=== PATIENT | female | born 1950 | race Caucasian/White ===

== ENCOUNTER 2018-09-28 10:46 | Inpatient (IN) | payer OTHER, MEDICAID ==
[~2018-09-28] VITALS: Ht 165.1 cm; Wt 96.2 kg
--- NOTE | ~2018-09-28 | DS ---
[place], [place] DISCHARGE SUMMARY NAME: ARLEY GORDON [facility] #: [id number] UNIT #: [id number] ROOM: 311 DOCTOR: SHAKIR PEREZ MD BIRTHDATE: [birth year] DOS: 10/04/2018 CHIEF COMPLAINT: "Oh, I guess I was sent from the [facility] to come and have my medicines changed." HISTORY OF PRESENT ILLNESS: This is a 68-year-old white female who was admitted to the [facility] from [facility]. The patient had become increasingly more depressed and despondent as well as increasingly more agitated. She has been openly urinating on the floor and taking off her colostomy bag and dumping the contents on the floor and laughing about it. Attempts to redirect her have only been met by her becoming increasingly more agitated and more despondent. The patient has endorsed poor sleep and appetite as well as decreased ADLs. She is admitted now to rule out organic factors and to attempt to stabilize on medication. SUMMARY OF HOSPITAL COURSE: The patient was admitted to the unit where she was started on a combination of Remeron 15 mg at bedtime and Risperdal 0.5 mg twice daily to decrease the depression and decrease the impulsivity and the bizarre behavior. Cognitively, she had significant short term gaps, so Exelon patch 4.6 mg a day and Namenda 5 mg a day were started. These were rapidly titrated upward to their maximum dose of Exelon patch 13.3 mg a day and Namenda 10 mg twice daily. The patient had a rapid and dramatic improvement with this combination of medicine. Sleep and appetite normalized. Her cognitive loss is minimized. She was able to attend to ADLs and attend groups. She voiced positive plans for the future and voiced a willingness and a readiness to go to [facility] to further her rehabilitation and build up strength. MENTAL STATUS AT DISCHARGE: The patient is alert and oriented with time gaps. Mood does seem to be strongly trending towards euthymia. Affect is more appropriate. There is no hypomania or brian. There is no gross psychosis. Short term memory has gaps, otherwise she is intact. FINAL DIAGNOSES AT THE TIME OF DISCHARGE: Major depression, recurrent with psychotic features and dementia, not otherwise specified. DISPOSITION: The patient is going to [facility]. Her prescriptions have been printed and will be sent with her. At the time of discharge, there were no acute medical problems and psychiatrically she was stable. I will be the treating psychiatrist of record upon her return to [facility]. [place], [place] DISCHARGE SUMMARY NAME: ARLEY GORDON UNIT #: [id number] ROOM: [facility] DOCTOR: SHAKIR PEREZ MD BIRTHDATE: [birth year] SHAKIR PEREZ MD CM:DISCHARG [id number] SHAKIR PEREZ MD 10/04/18 1226 interface
--- NOTE | ~2018-09-28 | WRIGHTHP ---
[place], [place] PATIENT HISTORY AND PHYSICAL EXAM [id number] UN[facility] #: [id number] ROOM: 311 DOCTOR: SHAKIR PEREZ MD BIRTHDATE: [birth year] DOS: 09/28/2018 CHIEF COMPLAINT: "Oh, I guess I was sent from the [facility] to come and have my medicines changed." HISTORY OF PRESENT ILLNESS: This is a 68-year-old white female who was admitted to the [facility] from [facility]. The patient apparently had become increasingly more depressed and despondent as well as increasingly agitated. She had been openly urinating on the floor or taking off her colostomy bag and dumping the contents on the floor and laughing about it. Attempts to redirect have only met with her becoming increasingly more agitated and despondent. The patient has had poor sleep and appetite and a decrease in her ADLs as well. She is admitted now to rule out organic factors and attempt to stabilize on medication. PAST MEDICAL HISTORY: Remarkable for atrial fibrillation, congestive heart failure, COPD, Crohn's disease, hypertension, GERD, morbid obesity, allergic rhinitis, and nicotine abuse. SOCIAL HISTORY: The patient is a former smoker. She smoked since the age of 14, approximately 1 pack a day, quitting in 09/2017. The patient does not drink alcohol nor does she use illicit drugs. STRENGTHS: Good verbal skills, willingness to seek help. WEAKNESSES: Cognitive decline, poor coping skills. MENTAL STATUS EXAMINATION: She is alert and oriented with significant time gaps. The patient does not remember being at [facility] and [facility] Mood does seem to be depressed with some anxious overtones. She endorses multiple neurovegetative symptoms. There was no overt psychosis noted at this time, although she was not totally forthcoming with symptoms. She did process conversation slowly and short term memory continued to be problematic. DIAGNOSIS: Major depression, recurrent with psychotic features and Alzheimer's dementia. PLAN: I have already started her on Remeron 15 mg at bedtime and Risperdal 0.5 mg twice daily. Given the cognitive decline, I will add Exelon patch 4.6 mg a day and augment with Namenda 5 mg a day. We will engage in individual and conrad milieu activity, returning to the least restrictive environment when psychiatrically stable. [place], [place] PATIENT HISTORY AND PHYSICAL EXAM NAME: ARLEY GORDON UNIT #: [id number] ROOM: 311 DOCTOR: SHAKIR PEREZ MD BIRTHDATE: [birth year] SHAKIR PEREZ MD CM:HISPHYS:PATIENT HISTORY AND PHYSICAL EXAMINATION [id number] SHAKIR PEREZ MD 09/29/18 1140 interface
--- NOTE | ~2018-09-28 | PR ---
[place], [place] PROGRESS NOTE NAME: ARLEY GORDON UNIT #: [id number] ROOM: 311 DOCTOR: SHAKIR PEREZ MD BIRTHDATE: [birth year] DOS: 09/30/2018 CHIEF COMPLAINT: "Oh, I slept well. Everything is good." SUMMARY OF THE VISIT: The patient was interviewed in the dining area where she had eaten her breakfast. She engaged readily in conversation, reporting that she slept well and felt well. When asked again about living at [facility]. She replied that she does not remember ever being there and that she came from [facility] in the [facility] directly to the hospital. This is consistent with, but other staff have noticed that she has talked about being at [facility]. Whether this represents part of the delirium or patchy memory loss is unclear. MENTAL STATUS: She is alert and oriented to person, place, not necessarily to time. Mood does seem to be fairly euthymic. Affect appropriate. There is no brian or hypomania. There is no gross psychosis. Short term memory has gaps. PLAN: I will go ahead and increase both the Exelon patch and the Namenda, bringing Exelon patch from 4.6 to 9.5 mg daily and increasing the Namenda from 5 mg a day to 5 mg twice a day. SHAKIR PEREZ MD CM:PNTRANS [id number] SHAKIR PEREZ MD 09/30/18 1301 interface
--- NOTE | ~2018-09-28 | PR ---
[place], [place] PROGRESS NOTE NAME: ARLEY GORDON UNIT #: [id number] ROOM: 311 DOCTOR: SHAKIR PEREZ MD BIRTHDATE: [birth year] DOS: 10/02/2018 INTERVAL NOTE CHIEF COMPLAINT: "Oh is it time to get up." SUMMARY OF THE VISIT: The patient was interviewed as she was resting quietly in bed. She engaged readily in conversation and voiced no complaints. She reports that she slept well and was ready for breakfast. Mood does seem to be strongly trending towards euthymia. Affect is more appropriate. MENTAL STATUS: She is alert and oriented with time gaps. Mood does seem to be much more appropriate and trending towards euthymia. There is no brian, hypomania or psychosis. Short term memory has gaps. PLAN: I will go ahead and maximize out her dose of Exelon patch, bringing it from 9.5 to 13.3 mg a day, being augmented by Namenda 10 mg twice daily. Continue her other psychotropics, engage in individual and conrad milieu activity, returning then to the least restrictive environment when psychiatrically stable. SHAKIR PEREZ MD CM:PNTRANS [phone] SHAKIR PEREZ MD 10/02/181726 interface
--- NOTE | ~2018-09-28 | PR ---
[place], [place] PROGRESS NOTE NAME: ARLEY GORDON UNIT #: [id number] ROOM: 311 DOCTOR: SHAKIR PEREZ MD BIRTHDATE: [birth year] DOS: 10/03/2018 CHIEF COMPLAINT: "Oh, I slept better. I am ready to go back to [facility]." SUMMARY OF THE VISIT: The patient was interviewed in the dining area where she was sitting with several female peers and 1 male peer. She engaged readily in conversation this time without prompting. She did mention that she is anxious to go back to [facility] and hopes that the one driver service technician will be able to pick her up. She reports that the meds are working and denies any side effects. MENTAL STATUS: She is alert and oriented to person, place, and very approximate to time. Mood does seem to be strongly trending towards euthymia. Affect is more appropriate. There is no brian or hypomania. There is no gross psychosis. Short-term memory has mild gaps, otherwise she is intact. PLAN: I will maintain her current psychotropic regimen. Continue to engage in individual and conrad milieu activity, returning to the least restrictive environment when psychiatrically stable. SHAKIR PEREZ MD CM:PNTRANS [phone] SHAKIR PEREZ MD 10/04/18 0355 interface
--- NOTE | ~2018-09-28 | PR ---
[place], [place] PROGRESS NOTE NAME: ARLEY GORDON UNIT #: [id number] ROOM: 311 DOCTOR: SHAKIR PEREZ MD BIRTHDATE: [birth year] DOS: 10/01/2018 CHIEF COMPLAINT: "Oh, I am so ready to go." SUMMARY OF THE VISIT: The patient was interviewed in the dining area. She reported that she slept well, but still feels tired this morning, she did eat her breakfast. She voiced no other complaints. She still remains somewhat confused with short-term memory loss. MENTAL STATUS: She is alert and oriented to person, place, but not necessarily time. Mood does seem to be more euthymic. Affect is more appropriate. There is no brian or hypomania. There is no gross psychosis. Short term memory has gaps, otherwise she is intact. PLAN: I will go ahead and maximize out the dose of the Namenda, bringing it to 10 mg twice daily while it augments the effectiveness of the Exelon patch, which I will increase to its maximum dose soon. Continue to engage in individual and conrad milieu activity, returning to the least restrictive environment when psychiatrically stable. SHAKIR PEREZ MD CM:PNTRANS [id number] SHAKIR PEREZ MD 10/01/18 1242 interface
[2018-09-28] MEDS ORDERED: BREO ELLIPTA 21 EACH INH (11:31)
[2018-09-28] MEDS ORDERED: CYMBALTA60 MG PO (11:32)
[2018-09-28] MEDS ORDERED: DIGITEK125 MCG PO (11:34)
[2018-09-28] MEDS ORDERED: VITAMIN D34000 UNIT PO (11:36)
[2018-09-28] MEDS ORDERED: VITAMIN D-32000 UNI1 PO (11:40)
[2018-09-28] MEDS ORDERED: NATURE'S BLEND F1 MG PO (11:41)
[2018-09-28] MEDS ORDERED: LASIX20 MG PO (11:42)
[2018-09-28] MEDS ORDERED: OXYBUTYNIN5 MG PO (11:43)
[2018-09-28] MEDS ORDERED: POTASSIUM CHLO10 ME4 PO (11:56)
[2018-09-28] MEDS ORDERED: PROTONIX40 MG PO (11:57)
[2018-09-28] MEDS ORDERED: ROWASA 4 G4 GM/60 ML R (12:00)
[2018-09-28] MEDS ORDERED: NAVANE2 MG PO (12:00)
[2018-09-28] MEDS ORDERED: FLONASE ALLERG9.9 ML NAS (12:01)
[2018-09-28] MEDS ORDERED: LOPRESSOR25 MG PO (12:02)
[2018-09-28] MEDS ORDERED: BENADRYL ALLERG25 M5 PO (12:06)
[2018-09-28] MEDS ORDERED: Ipratropium Brom3 ML INH (12:07)
--- NOTE | 2018-09-28 17:20 | NUR ---
EVANARLEY SAXENA a 68 year old F admitted via wheel chair from the ADMITTING as a voluntary admission. Arrived on unit at 1720. ALLERGIES: NKA. Vital signs are: [id number] 140/74. The client signed the following forms with stated understanding: Authorization For The Release of Medical Information, Clothing List, Consent to Voluntary Admission and Hospitalization, Consent and Release Forms/Receipt of Rights, Acknowledgement of Advance Directive Information, Behavioral Health Consent Form, and Informed Consent of Medications. Admitted under the services of Dr. CHRIS NAVARRETESHAKIR. A search was conducted and hazardous articles were removed. Client was oriented to the unit. VAL ROQUE
[2018-09-28 17:30] VITALS: BP 140/74
[2018-09-28 18:21] VITALS: BP 140/74
[2018-09-28 18:26] VITALS: BP 140/74
--- NOTE | 2018-09-28 18:58 | NUR ---
NOTIFIED OF NEW ADMISSION, MEDICATIONS/DIAGNOSIS LIST UPDATED. NOTIFIED OF COUPLE OF MEDICATIONS THAT NEEDS CLARIFIED. PATIENT TO BE UNDER THE CARE OF DR. COTTO.
--- NOTE | 2018-09-28 19:02 | NUR ---
PATIENT IS ALERT AND ORIENTED X3, ABLE TO VOICE NEEDS. SKIN ASSESSMENT COMPLETE; NOT AREAS NOTED. PATIENT HAS RIGHT UPPER CHEST MEDI PORT; PER PATIENT HAS NOT BEEN ACCESSED IN A LONG TIME. MOOD SLIGTLY ANXIOUS. DENIES ANY HALLUCINATIONS, DELUSIONS, HI/SI OR PAIN. ATE 100% OF DINNER; COOPERATIVE DURING ASSESSMENT. AMBULATES VERY SHORT DISTANCES WITH STEADY GAIT. COLOSTOMY IN PLACE, INCONTINENT OF BLADDER, HEMRROIDS NOTED WITH BLOOD NOTED IN BRIEF. DR. COTTO NOTIFIED.
--- NOTE | 2018-09-28 19:55 | NUR ---
Established rapport and pt declined any needs at this time and was notified of PSA plan for tomorrow.
[2018-09-28 20:00] VITALS: BP 107/54
--- NOTE | 2018-09-28 20:23 | NUR ---
DR. BELINDA STEWART ON UNIT TO SEE PATIENT AT THIS TIME.
--- NOTE | 2018-09-28 21:39 | NUR ---
DR BELINDA ALCOCER ON UNIT TO SEE PT FOR MEDICAL CONSULT
--- NOTE | 2018-09-29 00:03 | NUR ---
24 HR chart check completed.
--- NOTE | 2018-09-29 00:42 | NUR ---
PT IS ALERT & ORIENTED X 4. PLEASANT INTERACTIONS. HAS VOICED NO SUICIDAL FEELINGS. NO DELUSIONAL STATEMENTS VOICED. DENIES SENSORY DISTURBANCE & NONE IS NOTED. ATE HS SNACK. COMPLIANT WITH HS MEDICATIONS.
--- NOTE | 2018-09-29 05:32 | NUR ---
PT HAS SLEPT PAST 2214
--- NOTE | 2018-09-29 06:20 | NUR ---
PT INCONTINENT OF A VERY LARGE AMOUNT OF URINE. PRESENTLY IN THE SHOWER WITH 2 STAFF ASSISTS
[2018-09-29 06:21] LABS: BASO % 0.4 % (0.0-1.0); EOS # 0.9 10*3/uL (0.0-0.4); EOS % 11.8 % (1.0-4.0); HEMATOCRIT 35.5 % (37.0-47.0); HEMOGLOBIN 10.2 g/dl (12.0-16.0); LYMPH # 1.7 10*3/uL (1.3-4.4); MEAN CELL VOLUME 70.6 fl (81.0-99.0); MEAN CORPUSCULAR HGB 20.3 pg (27.0-31.0); MEAN CORPUSCULAR HGB CONC 28.7 g/dl (33.0-37.0); MEAN PLATELET VOLUME 8.3 fl (9.6-12.3); MONO # 1.3 10*3/uL (0.1-1.0); MONO % 16.4 % (3.0-9.0); NEUT # 3.8 10*3/uL (2.3-7.9); NEUT % 49.1 % (47.0-73.0); PLATELET COUNT AUTOMATED 335 10*3/uL (130-400); RED BLOOD COUNT 5.03 10*6/uL (4.10-5.10); RED CELL DISTRI WIDTH 19.4 % (0-14.5); WHITE BLOOD COUNT 7.7 10*3/uL (4.8-10.8)
[2018-09-29 07:00] LABS: ALBUMIN 2.5 gm/dl (3.1-4.5); ALKALINE PHOSPHATASE 72 U/L (45-117); BUN 11 mg/dl (7-24); CHLORIDE 107 mmol/L (98-107); CHOLESTEROL 213 mg/dL (<200); CREATININE 0.71 mg/dL (0.55-1.02); HDL CHOLESTEROL 54 mg/dl (40-60); LDL CHOLESTEROL 131 mg/dL (9-159); POTASSIUM 3.7 mmol/L (3.5-5.1); SGOT/AST 9 IU/L (3-35); SGPT/ALT 14 U/L (12-78); SODIUM 142 mmol/L (136-145); TOTAL PROTEIN 7.2 gm/dL (6.4-8.2); TRIGLYCERIDES 142 mg/dl (<150); VLDL CHOLESTEROL 28 mg/dL (6-40)
[2018-09-29 07:10] LABS: DIGOXIN 0.36 ng/ml (0.8-2.0)
[2018-09-29 07:34] VITALS: BP 123/67
--- NOTE | 2018-09-29 08:11 | NUR ---
PHYSICAL THERAPY Nursing screen received. PT orders also received. Thank you. Alexandra Farmer,PT
--- NOTE | 2018-09-29 08:15 | NUR ---
Treatment Plan meeting with Dr. Barahona, RN, AT, SW and Fraud Representative. Plan for discharge Next Week. Pt. is a current resident at [facility].
[2018-09-29 08:58] LABS: VITAMIN D, 25-HYDROXY 37.8 ng/mL (30-100)
--- NOTE | 2018-09-29 09:02 | NUR ---
Nursing screen and Occupational Therapy referral received. Thank you. Sanaz Castaneda OTR/L
--- NOTE | 2018-09-29 09:09 | NUR ---
Nursing screen and Occupational Therapy referral received. Thank you. Sanaz Castaneda OTR/l
--- NOTE | 2018-09-29 12:04 | NUR ---
AM GROUP PT ATTENDED AND PARTICIPATED IN GROUP BY PUTTING A JIGSAW PUZZLE TOGETHER WITH PEERS. PT EXPRESSED NO VISUAL HALLUCINATIONS DURING GROUP, WAS TALKATIVE WITH PEERS AND ON TASK.
--- NOTE | 2018-09-29 12:09 | NUR ---
AM GROUP PT ATTENDED AND PARTICIPATED IN GROUP BY PUTTING TOGETHER A JIGSAW PUZZLES WITH PEERS. PT EXHIBITED NO INAPPROPRIATE BEHAVIORS DURING GROUP. PT WAS TALKATIVE WITH PEERS AND ON TASK.
--- NOTE | 2018-09-29 12:38 | NUR ---
Spoke with Tatyana in admissions at [facility]. Pt. is [facility] at facility and will not require Precert prior to return. Tatyana states she will complete Significant change to PASRR.
--- NOTE | 2018-09-29 13:59 | NUR ---
Patient not available for Occupational Therapy evaluation as she is in group therapy. Sanaz Castanead OTR/L
--- NOTE | 2018-09-29 14:32 | NUR ---
PHYSICAL THERAPY PAtient at group. Alexandra Farmer,PT
--- NOTE | 2018-09-29 14:35 | NUR ---
Psychosocial assessment completed and support offered as pt discussed her previous suicide attempt and the aftermath. Pt seemed thankful to be alive currently and denied SI/HI.
--- NOTE | 2018-09-29 14:53 | NUR ---
Shift chart check completed.
--- NOTE | 2018-09-29 15:19 | NUR ---
case management contacted [facility] for [facility] authorization, spoke to Miesha, clinicals given, initial auth is for 3 days with next review 10/01/18, reference number is [id number]
--- NOTE | 2018-09-29 15:40 | NUR ---
PM GROUP/MUSIC AND FOCUS GROUP PT ATTENDED AND PARTICIPATED IN GROUP BY WORKING A JIGSAW PUZZLE, WORD SEARCH AND PARTICIPATING IN FOCUS TOPIC OF DEALING WITH DEPRESSION AND ANXIETY. PT EXHIBITED NO CHANGE IN MOOD OR INAPPROPRIATE BEHAVIORS DURING GROUP.
--- NOTE | 2018-09-29 17:04 | NUR ---
PATIENTS MOOD STABLE, CALM AND PURPOSEFUL. ALERT AND OREITNED X3. NO INTERACTION WITH INTERNAL STIMULI NOTED. DENIES HALLUCINATIONS, DELUSIONS, SI/HI, OR PAIN AT THIS TIME. PARTICIPATING AND INTERACTING IN GROUP. INTERACTING WITH STAFF AND ENGAGIN IN CONVERSATION. PATIENT WAS BUILDING A PUZZLE AND JOKING AROUND WITH PEERS. Q15 MINUTE CHECKS MAINTAINED FOR SAFETY. ONE ASSIST WITH AMBULATING AND TRANSFERING DUE TO BEING UNSTEADY.
[2018-09-29 20:00] VITALS: BP 103/65
--- NOTE | 2018-09-30 05:54 | NUR ---
PT SLEPT APPROXIMATELY 8 HOURS. NO ADVERSE MOODS OR BEHAVIORS NOTED THIS SHIFT. A&O X3. CALM AND INTERACTIVE. NO SI/HI. STABLE MOOD. NO HALLUCINATIONS OR DELUSIONS NOTED.
[2018-09-30 07:37] VITALS: BP 127/74
--- NOTE | 2018-09-30 08:15 | NUR ---
Treatment Plan meeting with Dr. Barahona, RN, AT, SW and Transaction Advisory Services Manager. Plan for discharge early next week. Pt. is LTC at [facility] and Will return at discharge.
--- NOTE | 2018-09-30 08:45 | NUR ---
PHYSICAL THERAPY PAtient evaluated on 3, full evaluation to follow. Continue with PT as per plan of care with fall, unit three, left hip pain with mobility ( patient reports chronic) and min (A) with mobility precautions. Return to LTC as prior with PT as required to return to PLOF. PAtient is moderate complexity via chart review, tests and evaluation: 90717. Thank you for this referral. Alexandra Farmer,PT
--- NOTE | 2018-09-30 09:56 | NUR ---
Occupational Therapy evaluation completed on 3 with full eval to follow. PRecautions include 3N unit prec, w/c use for ADLs, mobility as prior to admission. Patient is low complexity level 17948 via chart review, testing and evaluation. Recommend no further OT at this time as patient appears to be at prior w/c level and return to fdc upon d/c. Thank you. Sanaz Castaneda OTR/l
[2018-09-30 12:43] LABS: BILIRUBIN NEGATIVE (NEGATIVE); BLOOD 2+ (NEGATIVE); CLARITY CLOUDY (CLEAR); COLOR YELLOW (YELLOW); GLUCOSE NEGATIVE (NEGATIVE); KETONE NEGATIVE (NEGATIVE); LEUKO ESTERASE 2+ (NEGATIVE); NITRITE POSITIVE (NEGATIVE); SPECIFIC GRAVITY 1.025 (1.005-1.030); UROBILINOGEN 0.2 E.U./dl (0.2-1.0)
--- NOTE | 2018-09-30 13:09 | NUR ---
AM GROUP/EXERCISE AND PARACHUTE PT ATTENDED AND PARTICIPATED IN ALL GROUP ACTIVITIES. PT EXHIBITED NO INAPPROPRIATE BEHAVIORS OR CHANGES IN MOOD. PT WAS TALKATIVE AND COOPERATIVE
[2018-09-30 13:24] LABS: BACTERIA 4+; RBC TNTC rbc/hpf (0-2); WBC TNTC wbc/hpf (0-5)
--- NOTE | 2018-09-30 13:40 | NUR ---
PT ALERT. ORIENTED TO PERSON, PLACE, AND TIME, SPEECH IS SLOW AND SOFT. PT APPEARS CALM, INTERACTIVE WITH STAFF AND PEERS, PARTICIPATING IN GROUP ACTIVITY, COMPLETING PUZZLES. NO ADVERSE MOODS OR BEHAVIORS NOTED. NO HALLUCINATIONS OR DELUSIONS NOTED. PT DENIES SI/HI. PT IS UNSTEADY, USES WHEELCHAIR FOR ASSIST. FALLING STAR PROGRAM MAINTAINED FOR SAFETY. Q 15 MIN MONITORING PER PROTOCOL.
--- NOTE | 2018-09-30 15:48 | NUR ---
PM GROUP/MEDITATION AND THE 5 SENSES PT ATTENDED AND PARTICIPATED IN ALL GROUP ACTIVITIES. PT EXHIBITED NO INAPPROPRIATE BEHAVIORS OR CHANGE IN MOOD DURING GROUP. PT WAS VERY RELAXED AND ENJOYED THE SESSION
--- NOTE | 2018-09-30 15:57 | NUR ---
DR. HARVEY NOTIFIED OF UA RESULTS. STATED HE WILL PUT IN ORDERS.
--- NOTE | 2018-09-30 19:51 | NUR ---
24 HR chart check completed.
[2018-09-30 20:00] VITALS: BP 101/62
[2018-09-30 20:30] VITALS: BP 110/6
--- NOTE | 2018-10-01 06:12 | NUR ---
NO ADVERSE MOODS OR BEHAVIORS NOTED. PT SLEPT APPROXIMATELY 8 HOURS THIS SHIFT. NO HALLUCINATIONS OR DELUSIONS NOTED. NO HI/SI NOTED. Q15 MINUTE SAFETY CHECKS MAINTAINED.
[2018-10-01 07:36] VITALS: BP 150/58
--- NOTE | 2018-10-01 07:45 | NUR ---
PT AWAKE, ALERT, WAITING FOR BREAKFAST IN DINING ROOM.
--- NOTE | 2018-10-01 08:09 | NUR ---
ON UNIT TO SEE PT AT THIS TIME, UPDATE GIVEN.
--- NOTE | 2018-10-01 08:15 | NUR ---
Treatment Plan meeting with Dr. Barahona, RN, AT, and Cheese Supervisor. Plan for discharge Thursday. Pt. to return to [facility].
--- NOTE | 2018-10-01 09:18 | NUR ---
PHYSICAL THERAPY Patient presented to therapy sitting in wheelchair in activity room just finished eating breakfast. Patient reports L HIP pain that she says is chronic. Patient agrees to therapy session. Patient was identified by name and . Patient was wheeled out in hallway in front of Nurses station desk, where two receptionists and a nurse were working and witness to the patient's treatment. Patient's treatment was witnessed by CONTROL ROOM TECHNICIAN MUSA Schuster. Patient performed STS transfer with CGA. Patient performed ambulation with W/W and W/C follow with YUDELKA SCHUSTER pushing W/C behind patient. Patient ambulated with W/W and CGA X 1 for 40' x 1 with verbal cues for upright posture and staying close to walker. Patient then sat in W/C and performed seated bilateral LE ther ex 2 x 10 reps each in all planes of movement for strengthening the LEs in order to improve patient's functional mobility. Patient then performed standing static balance exercise EO/EC with SBA to CGA for 1 minute each. Patient performed x 4 STSs in 10 seconds time. Patient was left in activity room at table in wheelchair WITH RN NURSE PRESENT AND OTHER PATIENTS PRESENT. Patient was 1:1 with this CONTROL ROOM TECHNICIAN for 18 minutes total. NIRMAL PATTERSON CONTROL ROOM TECHNICIAN
--- NOTE | 2018-10-01 10:35 | NUR ---
AND ON UNIT TO SEE PT AT THIS TIME.
[2018-10-01] MEDS ORDERED: ASACOL HD800 M1 PO (11:30)
[2018-10-01] MEDS ORDERED: ROBITUSSIN-DM 110 ML PO (11:34)
[2018-10-01] MEDS ORDERED: ZOFRAN4 MG PO (11:35)
--- NOTE | 2018-10-01 11:47 | NUR ---
AM GROUP/THERAPY DOG PT ATTENDED AND PARTICIPATED IN THE SESSION WITH THE THERAPY DOG "SONIA" PT ASKED A LOT OF QUESTIONS AND WAS VERY HAPPY TO PET AND DOTE ON HER. PT EXHIBITED NO INAPPROPRIATE BEHAVIORS DURING THE SESSION BUT DID HAVE A HARD TIME STAYING AWAKE.
--- NOTE | 2018-10-01 13:02 | NUR ---
P- STABLE MOOD, PT REPORTS "I FEEL GOOD, JUST A LITTLE TIRED. I GOT UP TOO EARLY TODAY". I- ORIENTATION, MOOD AND BEHAVIORS ASSESSED. ASSESSED PT FOR SI/HI, INTENT OR PLAN. ASSESSED PT FOR S/S HALLUCINATIONS, PARANOIA AND/OR DELUSIONS. REDIRECTION AND 1:1 PROVIDED NEEDED. MEDICATIONS ADMINISTERED PER PHYSICIAN'S ORDERS. ASSISTANCE WITH ADL CARE PROVIDED NEEDED BY STAFF ASSIST X1. ENCOURAGED PT TO ATTEND AND PARTICIPATE IN CLAUDIO MILIEU GROUPS AND ACTIVITIES. R- PT IS ALERT AND ORIENTED X3. RESPS EASY AND EVEN ON ROOM AIR. MOOD IS STABLE, AFFECT IS APPROPRIATE. SPEECH IS WNL AND COHERENT, PT IS ABLE TO MAKE ALL NEEDS KNOWN WITHOUT DIFFICULTY. PT DENIES SI/HI, INTENT OR PLAN. PT DENIES HALLUCINATIONS, NO RESPONSE TO INTERNAL STIMULI NOTED. NO EVIDENCE OF PARANOIA AND/OR DELUSIONS NOTED. PT IS MEDICATION COMPLIANT WITHOUT DIFFICULTY. PT ATTENDED MORNING GROUP FOR PET THERAPY. P- PLAN TO CONTINUE CURRENT TREATMENT, CONTINUE TO MONITOR MOOD AND BEHAVIORS AND PROVIDE APPROPRIATE 1:1 AND REDIRECTION NEEDED. CONTINUE TO ENCOURAGE MEDICATION COMPLIANCE WELL GROUP ATTENDANCE AND PARTICIPATION.
--- NOTE | 2018-10-01 13:48 | NUR ---
Updates faxed to Eloisa Aguilar Attn:
--- NOTE | 2018-10-01 14:28 | NUR ---
Ritu Shoemaker LPN Nurse Liason from [facility] here to see Patient for onsite Assessment. Pt. is currently resident at [facility] and will transition to [facility] at Discharge. Advised of Plans to discharge [place]. Ritu advised that patient was brought with her own wheelchair and will require ambulette transport. Ritu states she will notify facility and work on transportation by facility [facility].
--- NOTE | 2018-10-01 15:21 | NUR ---
case management spoke to Gloria, concurrent review given, this will have to go to peer review, Dr Barahona cell number given for the reviewing physican to contact him
--- NOTE | 2018-10-01 15:35 | NUR ---
BINGO! PT ATTENDED AND PARTICIPATED IN BINGO. PT EXHIBITED NO INAPPROPRIATE BEHAVIORS NOR MOOD CHANGES. PT WAS LAUGHTING AND HELPFUL TO PEERS
--- NOTE | 2018-10-01 16:32 | NUR ---
SHIFT CHART CHECK COMPLETED.
--- NOTE | 2018-10-01 18:30 | NUR ---
HALI FROM [facility] ON UNIT TO SEE PT AT THIS TIME, BRAKE PRESS OPERATOR AWARE.
[2018-10-01 20:00] VITALS: BP 128/63
--- NOTE | 2018-10-01 20:46 | NUR ---
PT C/O PAIN ON HER GUMS AND REQUESTED TYLENOL. PRN TYLENOL GIVEN GIVEN AT THIS TIME. WILL MONITOR FOR EFFECTIVENESS OF MEDICATION.
--- NOTE | 2018-10-01 21:53 | NUR ---
PRN TYLENOL EFFECTIVE AT THIS TIME. WILL CONTINUE TO MONITOR EFFECTIVESS OF MEDICATION. PT RESTING COMFORTABLY IN BED AT THIS TIME.
--- NOTE | 2018-10-01 22:31 | NUR ---
NO ADVERSE MODOS OR BEHAVIORS NOTED. MEDICATION COMPLIANT. MEDICATION EDUCATION PROVIDED. NO HALLUCINATIONS OR DELUSIONS NOTED. NO SI/HI NOTED. Q15 MINUTE SAFETY CHECKS NOTED. PT INTERACTIVE WITH STAFF AND PEERS. NO BEHAVIORS NOTED REGARDING URINATING ON THE FLOOR OR POPPING COLOSTOMY BAG. PT OFFERED A SHOWER AND PT STATED SHE WOULD RATHER HAVE ONE IN THE AM. NO FURTHER COMPLAINTS OF PAIN.
--- NOTE | 2018-10-02 01:39 | NUR ---
24 HR chart check completed.
--- NOTE | 2018-10-02 05:36 | NUR ---
PT SLEPT APPROXIMATELY 7 HOURS THIS SHIFT. Q15 MINUTE SAFETY CHECKS MAINTAINED.
[2018-10-02 07:33] VITALS: BP 136/64
--- NOTE | 2018-10-02 07:45 | NUR ---
PT RESTING QUIETLY IN BED AT THIS TIME, EASILY AROUSABLE VIA VERBAL STIMULI, DECLINES TO GET UP FOR BREAKFAST, STATES "I'M JUST TIRED. I'M NOT HUNGRY".
--- NOTE | 2018-10-02 08:25 | NUR ---
ON UNIT TO SEE PT AT THIS TIME, UPDATE GIVEN.
--- NOTE | 2018-10-02 09:31 | NUR ---
PRN TYLENOL 650MG PO GIVEN AT THIS TIME PER PT C/O BACK/HIP PAIN NOT RATED ON PAIN SCALE, UNRELIEVED BY REPOSITIONING/NONPHARMALOGICAL MEASURES. WILL MONITOR FOR MEDICATION EFFECTIVENESS.
--- NOTE | 2018-10-02 10:50 | NUR ---
ON UNIT TO SEE PT AT THIS TIME, AWARE OF FINAL URINE CULTURE.
--- NOTE | 2018-10-02 11:47 | NUR ---
AM GROUP/EXERCISE/ART/MUSIC PT CHOSE NOT TO ATTEND GROUP BUT TO REMAIN IN BED. PT WILL CONTINUE TO BE ENCOURAGED TO ATTEND AND PARTICIPATE IN FUTURE GROUP SESSIONS.
--- NOTE | 2018-10-02 14:02 | NUR ---
P- STABLE MOOD. PT STATES "I FEEL GOOD, JUST A LITTLE TIRED". I- ORIENTATION, MOOD AND BEHAVIOR ASSESSED. ASSESSED PT FOR SI/HI, INTENT OR PLAN. ASSESSED PT FOR S/S HALLUCINATIONS, PARANOIA AND/OR DELUSIONS. MEDICATIONS ADMINISTERED PER PHYSICIAN'S ORDERS. ENCOURAGED PT TO ATTEND AND PARTICIPATE IN [facility] GROUPS AND ACTIVITIES. STAFF ASSIST X1 PROVIDED FOR ADL CARE. R- PT IS ALERT AND ORIENTED X4. MEMORY APPEARS TO BE INTACT. RESPS EASY AND EVEN ON ROOM AIR. MOOD IS STABLE, AFFECT IS BROAD RANGE AND APPROPRIATE. PT HAD ONE TEARFUL EPISODE THIS AM WHEN REMINSICING WITH THIS NURSE ABOUT HER FAMILY AND THE OF HER MOTHER. PT ABLE TO CALM SELF WITHOUT DIFFICULTY. PT DENIES SI/HI, INTENT OR PLAN. PT DENIES HALLUCINATIONS, NO RESPONSE TO INTERNAL STIMULI NOTED. PT IS MEDICATION COMPLIANT WITHOUT DIFFICULTY. POSITIVE INTERACTIONS NOTED WITH BOTH PEERS AND STAFF. P- PLAN TO CONTINUE CURRENT TX, CONTINUE TO MONITOR MOOD AND BEHAVIORS AND PROVIDE APPROPRIATE REORIENTATION, REDIRECTION AND 1:1 NEEDED. CONTINUE TO ENCOURAGE MEDICATION COMPLIANCE WELL GROUP ATTENDANCE AND PARTICIPATION.
--- NOTE | 2018-10-02 18:52 | NUR ---
SHIFT CHART CHECK COMPLETED.
[2018-10-02 19:41] VITALS: BP 110/65
--- NOTE | 2018-10-02 21:30 | NUR ---
Medicated with Tylenol po prn for c/o chronic back/hip pain. Will monitor effectiveness. No adverse behavior or moods at this time. Pt.compliant with medication without difficulty. No SI/HI noted. No signs of any hallucinations/delusions noted at this time. Encouraged patient to be compliant with her medications. Medication education provided with patient. Q 15 minute safety checks continued and maintained. See [facility] flowsheet for further specific monitoring.
--- NOTE | 2018-10-03 01:12 | NUR ---
24 HR chart check completed.
--- NOTE | 2018-10-03 05:58 | NUR ---
Patient slept approx. 7 hours throughout shift.
[2018-10-03 07:23] VITALS: BP 107/66
--- NOTE | 2018-10-03 13:01 | NUR ---
ON UNIT TO SEE PT AT THIS TIME, MADE AWARE PT HAS MESALAMINE ON MED REC, NOT CONTINUED. ALSO MADE AWARE PT NOTED WITH SMALL AMOUNTS OF RED BLOOD IN COLOSTOMY BAG WHICH PT STATES IS NORMAL FOR HER.
--- NOTE | 2018-10-03 16:22 | NUR ---
PM GROUP/LEISURE SKILLS PT ATTENDED AND PARTICIPATED IN GROUP. PT PLEASANT AND ON TASK. PT DID NOT ACT OUT BEHAVORIALLY AT THIS TIME OR DISPLAY ANY MOOD CHANGES. PT WILL CONTINUE TO ATTEND AND PARTICIPATE IN FUTURE GROUP SESSIONS.
--- NOTE | 2018-10-03 16:45 | NUR ---
P-STABLE MOOD. I-ORIENTATION, MOOD AND BEHAVIOR ASSESSED. ASSESSED FOR SI/HI, INTENT OR PLAN. ASSESSED FOR S/S HALLUCINATIONS AND/OR DELUSIONS. MEDICATIONS ADMINISTERED PER PHYSICIAN'S ORDERS. ENCOURAGE PT TO PARTICIPATE IN GROUPS AND ACTIVITIES. R-PT ALERT AND ORIENTED X4. MEMORY INTACT. MOOD IS STABLE. AFFECT APPROPRIATE. SPEECH IS WNL AND COHERENT. PT DENIES SI/HI, INTENT AND PLAN. PT DENIES HALLUCINATIONS AND/OR DELUSIONS. PT IS MEDICATION COMPLIANT WITHOUT DIFFICULTY. PT ATTENDS AND PARTICIPATES IN GROUP AND ACTIVITIES. POSITIVE INTERACTION WITH STAFF AND PEERS. P-CONTINUE CURRENT TREATMENT. CONTINUE TO MONITOR MOODS AND BEHAVIORS. PROVIDE APPROPRIATE ORIENTATION, REDIRECTION AND 1-1 NEEDED. CONTINUE TO ENCOURAGE MEDICATION COMPLIANCE WELL GROUP ATTENDANCE AND PARTICIPATION.
--- NOTE | 2018-10-03 17:45 | NUR ---
SHIFT CHART CHECK COMPLETED.
--- NOTE | 2018-10-03 18:51 | NUR ---
TYLENOL HAS BEEN EFFECTIVE, PT OFFERS NO FURTHER COMPLAINTS.
[2018-10-03 19:50] VITALS: BP 113/77
--- NOTE | 2018-10-03 22:28 | NUR ---
24 HR chart check completed.
--- NOTE | 2018-10-03 23:50 | NUR ---
PT IS STABLE. HAS RESTED IN BED SINCE THE ONSET OF THE SHIFT. SHE IS ALERT & ORIENTED X 4. PLEASANT & CO-OPERATIVE. DENIES ANY PHYSICAL DISCOMFORT OR ISSUES. STATED THAT SHE IS FEELING GOOD & IS FINE. DENIES SUICIDAL FEELINGS. COMPLIANT TAKING HS MEDICATIONS. REQUIRES 1 STAFF ASSIST.
--- NOTE | 2018-10-04 05:46 | NUR ---
PT HAS SLEPT QUIETLY PAST 2100.
[2018-10-04 07:12] VITALS: BP 115/56
--- NOTE | 2018-10-04 07:25 | NUR ---
PHYSICAL THERAPY Patient seen this am for therapy visit and was sitting in her w/c at activity room table upon therapist arrival. OT special event assistant was present for observation only during entire [employer] visit this morning. Patient reports mild 4/10, chronic L hip pain and was able to perform seated B LE therex, all planes, x 20 reps each without c/o. Patient also completed several sit to stand transfers at rail, Min A, B UE support, demonstrating smooth initial rise. Patient tolerated approx 1 minute static standing each trial, reporting no increase in pain c/o and returned to activity room table in w/c awaiting breakfast. Patient remained under [facility] staff Supervision and will continue per POC as tolerated. Total treatment time 17 minutes. Alex Kaufman, EYEGLASS CUTTER
--- NOTE | 2018-10-04 08:00 | NUR ---
TREATMENT PLAN MEETING WITH DR. PEREZ RN, AT, AND CHARGE MASTER COORDINATOR. PLAN FOR DISCHARGE TODAY. PT. IS GOING TO [facility] AT DISCHARGE. FACILITY IS MAKING TRANSPORTATION ARRANGEMENTS AT THIS TIME.
[2018-10-04] MEDS ORDERED: MEMANTINE HCL10 MG PO (08:36)
[2018-10-04] MEDS ORDERED: MIRTAZAPINE15 M2 PO (08:36)
[2018-10-04] MEDS ORDERED: RISPERIDONE0.5 MG PO (08:36)
[2018-10-04] MEDS ORDERED: EXELON13.3 MG/21 T (08:36)
--- NOTE | 2018-10-04 10:08 | NUR ---
SPOKE WITH DR. COELHO AT [phone] RE:PT DISCHARGE AND MEDICAL MEDS MILIND COMPLETED NO FURTHER ORDERS AT THIS TIME.
--- NOTE | 2018-10-04 10:41 | NUR ---
SPOKE WITH MARIBEL SETHI AT [facility]. AND NOTIFIED OF DISCHARGE. DISCHARGE INFORMATION FAXED TO [phone] ATTN [facility] WILL PICK PATIENT UP AND TRANSPORT BETWEEN 2:30 AND 3:00 P.M. NURSING STAFF NOTIFIED.
--- NOTE | 2018-10-04 11:08 | NUR ---
DR COTTO ON UNIT TO ASSESS PATIENT AND NOTIFIED OF PATIENT BEING DISCHARGED.
--- NOTE | 2018-10-04 11:46 | NUR ---
AM GROUP/PARACHUTE/FOCUS PT ATTENDED AND PARTICIPATED IN ALL GROUP ACTIVITY. PT PLEASANT AND ON TASK WITH NO MOOD CHANGES OR BEHAVIORS. PT WILL PLAN FOR DISCHARGE FROM UNIT TODAY.
--- NOTE | 2018-10-04 13:21 | NUR ---
NURSE TO NURSE REPORT GIVEN TO [facility].
--- NOTE | 2018-10-04 14:14 | NUR ---
PATIENT COMPLAINING OF LEFT SIDE OF MOUTH, GUM PAIN, RATING 10/10 PAIN. MOUTH ASSESSED, NO REDESS TO AREA NOTED. PRN TYLONEL 650MG PO GIVEN AT THIS TIME.
--- NOTE | 2018-10-04 14:26 | NUR ---
Met with pt and reviewed discharge plan as well as collaborated with tx team. Pt indicated reasons for living and feeling positive and satisified about feeling she was able to help a few other patients. Pt was provided encouragemnet and support and discussed her discharge to a new facility and pt seemed calm and content about her new placement. Pt had not questions at this time and thanked this filing writer.
--- NOTE | 2018-10-04 14:43 | NUR ---
PATIENT READY FOR DISCHARGE, ALL DISCHARGE INSTRUCTIONS REVIEW AND SIGNED. ALL BELONGING GATHERED. FACILITY TRANSPORT PRESENT. PATIENT ASSISTED INTO WHEELCHAIR. PATIENT ASSISTED OFF UNIT WITH STAFF TO FACILITY VAN.
--- NOTE | 2018-10-04 15:50 | NUR ---
PHYSICAL THERAPY CO-SIGN I approve of the Phyical Therapy notes written above. MARSHA CORBETT PT
== END 2018-10-04 14:43 | disposition other institution (70) | DRG 885 ==
LOC: 3N 10:46
PROVIDERS: ADMIT Psychiatry & Neurology Psychiatry
DX: F33.3 Major depressive disorder, recurrent, severe with psychotic symptoms (principal); I50.32 Chronic diastolic (congestive) heart failure; K50.918 Crohn's disease, unspecified, with other complication; F02.81 Dementia in other diseases classified elsewhere, unspecified severity, with behavioral disturbance; I48.0 Paroxysmal atrial fibrillation; J44.9 Chronic obstructive pulmonary disease, unspecified; F17.200 Nicotine dependence, unspecified, uncomplicated; I11.0 Hypertensive heart disease with heart failure; K21.9 Gastro-esophageal reflux disease without esophagitis; J30.2 Other seasonal allergic rhinitis; E66.01 Morbid (severe) obesity due to excess calories; N39.3 Stress incontinence (female) (male); G30.9 Alzheimer's disease, unspecified; Z82.49 Family history of ischemic heart disease and other diseases of the circulatory system; Z68.35 Body mass index [BMI] 35.0-35.9, adult